=== PATIENT | female | born 2005 | race African-American/Black ===

== ENCOUNTER 2025-03-12 22:47 | Inpatient (IN) ==
--- NOTE | 2025-03-12 22:54 | Emergency Department Note ---
Impression & Plan Right lower lobe pneumonia, Pulmonary embolism and infarction, COVID-19, Hyponatremia ED Provider Note CHIEF COMPLAINT: Flank pain HISTORY OF PRESENTING ILLNESS: The patient is a 19-year-old female with no significant past medical history that reports to the emergency department via EMS due to right sided rib pain that began yesterday which has now progressed into right lower chest pain and right upper quadrant abdominal pain. She reports associated shortness of breath and pain that is worse with a deep breath. She denies fevers, URI symptoms, nausea, vomiting, constipation, diarrhea, urinary symptoms, recent travel, history of blood clots, calf or leg pain. She does report taking an estrogen containing control. REVIEW OF SYSTEMS: See HPI for pertinent positives and pertinent negatives. ALLERGIES: NKDA MEDICATIONS: control PAST MEDICAL HISTORY: Denies past medical history. PHYSICAL EXAM: VITALS: Vitals are noted on the nurses note and reviewed by myself. Vital signs stable. GENERAL: 19-year-old female, tearful on exam, in no acute distress, nondiaphoretic, well-developed well-nourished. SKIN: Capillary refill less than 2 seconds. No rash. HEENT: Normocephalic. PERRLA. EOMI. Nares patent. Mucous membranes moist. Neck is supple without nuchal rigidity. HEART: Regular rate and rhythm without murmurs gallops or rubs. LUNGS: Diminished breath sounds over right lower lung christiansen, CTA BL without wheezes, rales or rhonchi. No retractions or accessory muscle use. ABDOMEN: Positive BS x 4. Soft, tenderness upon palpation to the RUQ, all other quadrants are nontender, without masses or organomegaly. Hancock sign negative. No guarding or rebound tenderness. MUSCULOSKELETAL: No gross musculoskeletal defects. No pedal edema. No calf tenderness. NEURO: Patient was alert and oriented to person place and time. No focal neurological deficits. DIFFERENTIAL DIAGNOSIS: Differential diagnosis includes acute coronary syndrome, pulmonary embolism, pneumothorax, pericarditis, myocarditis, endocarditis, anxiety, musculoskeletal pain, GERD, costochondritis, pneumonia, among others. ED COURSE AND MEDICAL DECISION MAKING: HISTORY FROM INDEPENDENT HISTORIAN: The patient herself. MEDICATIONS GIVEN: Toradol 10 mg IV, 1 L normal saline, Unasyn 3 g, 1 L normal saline, MONITOR: Continuous cardiac cath technician: Order was placed for continuous cardiac cath technician. Patient was placed on the cardiac cath technician and continuous pulse ox. Patient was noted to be in normal sinus rhythm at an initial rate of 101 bpm per my interpretation. EKG: EKG was interpreted by myself as sinus tachycardia. No obvious arrhythmia. TN interval 146 ms. QT interval 435 ms. No previous EKG for comparison. INTERPRETATION OF LABS: I interpreted the labs with full lab results as below in the lab section of this note. Pertinent lab results discussed in the MDM section below. INTERPRETATION OF IMAGING: Imaging studies were interpreted by myself and read by radiology as per the imaging section of this note. Chest x-ray - Poor inspiratory effort. Infiltrate versus atelectasis right lung base. Recommend standard PA/lateral view of chest. CT abdomen pelvis - Large airspace consolidation in the right lower lobe. No acute intra-abdominal abnormality. CTA chest - Evidence of intraluminal hypodense filling defect is noted involving the right lower lobar artery and segmental branches, suggestive of pulmonary embolism. Large airspace consolidation with adjacent ground-glass opacities is noted in the right lower lobe. Possibility of lung infarct is likely. Minimal right-sided pleural effusion. CONSULTATIONS: On-call [facility] hospitalist - Presented the patient to the provider who agrees to admission to medicine. I have personally spent greater than 30 minutes of critical care time in the direct management of this patient. This includes bedside care, interpretation of diagnostic studies, and testing, discussion with consultants, patient, and family members, and other required patient management activities. This 30 minutes is in excess of all separately billable procedures. [facility] SUMMARY: I evaluated the 19-year-old female who presents to the emergency department due to 2 days of right sided rib pain, chest pain, and associated shortness of breath. See HPI and PE above. Patient mildly tachycardic with a rate of [id number]. All other vital stable. Toradol and 1 L normal saline given for symptom management. Labs obtained showing mild leukocytosis WBC 11.09. Hemodynamically stable. Hyponatremia sodium 131. No VALERIANO. Lipase 12. negative. D-dimer elevated 3920. CT abdomen and pelvis shows no acute abnormality. CTA chest shows pulmonary embolism with possibility of long infarction. Minimal right sided pleural effusion. All laboratory and imaging results were thoroughly reviewed with the patient. BioFire ordered which resulted positive for COVID-19. Blood cultures obtained and IV Unasyn given. Patient's vitals remained stable. Consultation with on-call hospitalist can be seen above. Heparin bolus and drip ordered by hospitalist. Patient is agreeable to admission and all questions answered. The patient was admitted to medicine in stable condition. DIAGNOSIS: Right lower lobe pneumonia, pulmonary embolism and infarction, COVID- 19, hyponatremia The chart was completed utilizing [employer] Speech voice recognition software. Grammatical errors, random word insertions, pronoun errors, and incomplete sentences are an occasional consequence of this system due to software limitations, ambient noise, and hardware issues. Any formal questions or concerns about the content, text, or information contained within the body of this dictation should be directly addressed to the provider for clarification. Past Med/Surg History Problem List (Updated 03/14/25 @ 11:10 by Rosa Jara PA-C) Hyponatremia (Acute) COVID-19 (Acute) Pulmonary embolism and infarction (Acute) Right lower lobe pneumonia (Acute) Medical History Uses oral contraceptives Social History Smoking Status: Never smoker Tobacco Type: Cigarettes Second Hand Exposure: No; Do You Dip or Chew Tobacco: No; Tobacco Cessation Education Requested by Patient: No Hx Alcohol Use: No Hx Substance Use: No Preferred Language: Kyrgyz Current Living Situation: Alone Current Living Situation Comment: student lives with roommate Other Information That Helps Us Care for You: No Feels Safe at Home: Yes Safety Concerns: Feels Safe At This Time Allergies Allergies Allergy/AdvReac Type Severity Reaction Status Date / Time No Known Allergies Allergy Unverified 03/12/25 23:24 Home Meds Previous Rx's Medication Instructions Recorded amoxicillin 875 mg-potassium 1 tab PO BID #10 tabs 03/14/25 clavulanate 125 mg tablet apixaban 5 mg (74 tabs) tablets in 5 mg PO BID #74 ea 03/14/25 a dose pack (Eliquis) tramadol 50 mg tablet 50 mg PO Q4H PRN pain #30 tabs 03/14/25 Results & Data (ED) Vital Signs Vital Signs - 24 hr 03/12/25 22:54 03/12/25 23:00 03/12/25 23:30 Pulse Rate 100 H 99 H Pulse Rate [Apical] 104 H Respiratory Rate 18 28 H Blood Pressure 110/82 Blood Pressure [Right Arm] 126/75 Blood Pressure Mean 91 Blood Pressure Mean [Right Arm] 92 Pulse Oximetry 100 100 Oxygen Delivery Method Room Air Room Air Sepsis Recent Fever Within 48 Hours No Sepsis New/Unexplained Change in Mental Status No Sepsis Action Taken by Nursing No Action Required 03/12/25 23:32 03/13/25 00:52 03/13/25 02:14 Pulse Rate Pulse Rate [Apical] 102 H 89 Respiratory Rate 30 H 24 Blood Pressure Blood Pressure [Right Arm] 125/72 108/67 Blood Pressure Mean Blood Pressure Mean [Right Arm] 89 80 Pulse Oximetry 99 95 100 Oxygen Delivery Method Room Air Room Air Room Air Sepsis Recent Fever Within 48 Hours Sepsis New/Unexplained Change in Mental Status Sepsis Action Taken by Nursing Laboratory Data 03/14/25 05:45 03/14/25 05:45 Lab Results 03/12/25 03/12/25 03/12/25 Range/Units 23:25 23:26 23:27 WBC 11.09 H (4.8-10.8) K/ul RBC 4.39 (4.20-5.40) M/uL Hgb 11.4 L (12.0-16.0) g/dl POC Hgb (12.0-16.0) g/dl Hct 36.3 L (37.0-47.0) % POC Hct (37-47) % MCV 82.7 (80.0-100.0) fL MCH 26.0 (25.0-34.0) pg MCHC 31.4 L (32.0-36.0) g/dL RDW Std Deviation 39.2 (36.4-46.3) fL RDW Coeff of Martir 13.0 (11.5-14.5) % Plt Count 245 (130-400) K/uL MPV 10.8 (9.4-12.4) fL Immature Gran % (Auto) 0.3 % Neut % (Auto) 79.3 % Lymph % (Auto) 11.3 % [place]oux % (Auto) 8.5 % Eos % (Auto) 0.3 % Baso % (Auto) 0.3 % Neut # (Auto) 8.81 H (1.40-6.50) K/uL Lymph # (Auto) 1.25 (1.20-3.40) K/uL [place] # (Auto) 0.94 H (0.11-0.59) K/uL Eos # (Auto) 0.03 (0.00-0.50) K/uL Baso # (Auto) 0.03 (0.00-0.20) K/uL Immature Gran # (Auto) 0.03 (0.01-0.20) K/uL D-Dimer 3920 H* (0-500) ug/L FEU POC Sodium (135-144) mmol/L Sodium 131 L (136-145) mmol/L POC Potassium (3.3-5.0) mmol/L Potassium 3.8 (3.5-5.1) mmol/L POC Chloride (101-112) mmol/L Chloride 99 (98-107) mmol/L Carbon Dioxide 24 (21-32) mmol/L POC Total CO2 (24-31) mmol/L Anion Gap 8 (3-11) POC Anion Gap (16-25) mmol/L POC BUN (7-18) mg/dl BUN 11 (6-23) mg/dl Creatinine 0.64 (0.6-1.2) mg/dl POC Creatinine (0.6-1.3) mg/dl Est Cr Clr Drug Dosing 125.6 ml/min eGFR 128.86 BUN/Creatinine Ratio 17.2 (10-20) Glucose 99 (70-99(Fasting)) mg/dl POC Glucose (other) (70-99) mg/dl Calcium 9.1 (8.6-10.3) mg/dl POC Ioniz Calcium Anderson (1.12-1.32) mmol/l Total Bilirubin 0.3 (0.2-1.0) mg/dl AST 15 (13-39) U/L ALT 9 (7-52) U/L Alkaline Phosphatase 58 (34-104) U/L Troponin I High Sens 4.0 (0-14) pg/ml Total Protein 7.8 (6.0-8.3) gm/dl Albumin 4.0 (3.4-5.0) gm/dl Globulin 3.8 (2.5-4.0) gm/dl Albumin/Globulin Ratio 1.1 (0.9-2) Lipase 12 (11-82) U/L HCG, Qual Negative (Negative) Urine Color Urine Appearance (Clear) Urine pH (4.5-7.5) Ur Specific [place] (1.000-1.030) Urine Protein (Negative) Urine Glucose (UA) (Negative) Urine Ketones (Negative) Urine Blood (Negative) Urine Nitrite (Negative) Urine Bilirubin (Negative) Urine Urobilinogen (Negative) Ur Leukocyte Esterase (Negative) Urine Comment Nasal Screen MRSA (PCR) (Negative) Adenovirus (PCR) (NotDetected) B. pertussis DNA (PCR) (NotDetected) B.parapertussis DNA PCR (NotDetected) C. pneumoniae DNA (PCR) (NotDetected) Coronavirus OC43 (PCR) (NotDetected) Coronavirus HKU1 (PCR) (NotDetected) Coronavirus 229E (PCR) (NotDetected) SARS-CoV-2 (PCR) (NotDetected) Coronavirus NL63 (PCR) (NotDetected) Human Metapneumovir PCR (NotDetected) Influenza Type A (PCR) (NotDetected) Influenza Type B (PCR) (NotDetected) M. pneumoniae (PCR) (NotDetected) Parainfluenza 1 (PCR) (NotDetected) Parainfluenza 2 (PCR) (NotDetected) Parainfluenza 3 (PCR) (NotDetected) Parainfluenza 4 (PCR) (NotDetected) RSV (PCR) (NotDetected) Entero/Rhino (PCR) (NotDetected) 03/12/25 03/13/25 03/13/25 Range/Units 23:41 00:13 01:13 WBC (4.8-10.8) K/ul RBC (4.20-5.40) M/uL Hgb (12.0-16.0) g/dl POC Hgb 12.9 (12.0-16.0) g/dl Hct (37.0-47.0) % POC Hct 38 (37-47) % MCV (80.0-100.0) fL MCH (25.0-34.0) pg MCHC (32.0-36.0) g/dL RDW Std Deviation (36.4-46.3) fL RDW Coeff of Martir (11.5-14.5) % Plt Count (130-400) K/uL MPV (9.4-12.4) fL Immature Gran % (Auto) % Neut % (Auto) % Lymph % (Auto) % [place] % (Auto) % Eos % (Auto) % Baso % (Auto) % Neut # (Auto) (1.40-6.50) K/uL Lymph # (Auto) (1.20-3.40) K/uL [place] # (Auto) (0.11-0.59) K/uL Eos # (Auto) (0.00-0.50) K/uL Baso # (Auto) (0.00-0.20) K/uL Immature Gran # (Auto) (0.01-0.20) K/uL D-Dimer (0-500) ug/L FEU POC Sodium 131 L (135-144) mmol/L Sodium (136-145) mmol/L POC Potassium 4.3 (3.3-5.0) mmol/L Potassium (3.5-5.1) mmol/L POC Chloride 99 L (101-112) mmol/L Chloride (98-107) mmol/L Carbon Dioxide (21-32) mmol/L POC Total CO2 21 L (24-31) mmol/L Anion Gap (3-11) POC Anion Gap 16.0 (16-25) mmol/L POC BUN 9 (7-18) mg/dl BUN (6-23) mg/dl Creatinine (0.6-1.2) mg/dl POC Creatinine 0.6 (0.6-1.3) mg/dl Est Cr Clr Drug Dosing ml/min eGFR BUN/Creatinine Ratio (10-20) Glucose (70-99(Fasting)) mg/dl POC Glucose (other) 98 (70-99) mg/dl Calcium (8.6-10.3) mg/dl POC Ioniz Calcium Anderson 1.12 (1.12-1.32) mmol/l Total Bilirubin (0.2-1.0) mg/dl AST (13-39) U/L ALT (7-52) U/L Alkaline Phosphatase (34-104) U/L Troponin I High Sens (0-14) pg/ml Total Protein (6.0-8.3) gm/dl Albumin (3.4-5.0) gm/dl Globulin (2.5-4.0) gm/dl Albumin/Globulin Ratio (0.9-2) Lipase (11-82) U/L HCG, Qual (Negative) Urine Color Yellow Urine Appearance Clear (Clear) Urine pH 5.5 (4.5-7.5) Ur Specific [place] 1.036 H (1.000-1.030) Urine Protein Negative (Negative) Urine Glucose (UA) Negative (Negative) Urine Ketones 2+ H (Negative) Urine Blood Negative (Negative) Urine Nitrite Negative (Negative) Urine Bilirubin Negative (Negative) Urine Urobilinogen Negative (Negative) Ur Leukocyte Esterase Negative (Negative) Urine Comment Nasal Screen MRSA (PCR) (Negative) Adenovirus (PCR) Not Detected (NotDetected) B. pertussis DNA (PCR) Not Detected (NotDetected) B.parapertussis DNA PCR Not Detected (NotDetected) C. pneumoniae DNA (PCR) Not Detected (NotDetected) Coronavirus OC43 (PCR) Not Detected (NotDetected) Coronavirus HKU1 (PCR) Not Detected (NotDetected) Coronavirus 229E (PCR) Not Detected (NotDetected) SARS-CoV-2 (PCR) DETECTED A (NotDetected) Coronavirus NL63 (PCR) Not Detected (NotDetected) Human Metapneumovir PCR Not Detected (NotDetected) Influenza Type A (PCR) Not Detected (NotDetected) Influenza Type B (PCR) Not Detected (NotDetected) M. pneumoniae (PCR) Not Detected (NotDetected) Parainfluenza 1 (PCR) Not Detected (NotDetected) Parainfluenza 2 (PCR) Not Detected (NotDetected) Parainfluenza 3 (PCR) Not Detected (NotDetected) Parainfluenza 4 (PCR) Not Detected (NotDetected) RSV (PCR) Not Detected (NotDetected) Entero/Rhino (PCR) Not Detected (NotDetected) 03/13/25 Range/Units 02:44 WBC (4.8-10.8) K/ul RBC (4.20-5.40) M/uL Hgb (12.0-16.0) g/dl POC Hgb (12.0-16.0) g/dl Hct (37.0-47.0) % POC Hct (37-47) % MCV (80.0-100.0) fL MCH (25.0-34.0) pg MCHC (32.0-36.0) g/dL RDW Std Deviation (36.4-46.3) fL RDW Coeff of Martir (11.5-14.5) % Plt Count (130-400) K/uL MPV (9.4-12.4) fL Immature Gran % (Auto) % Neut % (Auto) % Lymph % (Auto) % [place] % (Auto) % Eos % (Auto) % Baso % (Auto) % Neut # (Auto) (1.40-6.50) K/uL Lymph # (Auto) (1.20-3.40) K/uL [place] # (Auto) (0.11-0.59) K/uL Eos # (Auto) (0.00-0.50) K/uL Baso # (Auto) (0.00-0.20) K/uL Immature Gran # (Auto) (0.01-0.20) K/uL D-Dimer (0-500) ug/L FEU POC Sodium (135-144) mmol/L Sodium (136-145) mmol/L POC Potassium (3.3-5.0) mmol/L Potassium (3.5-5.1) mmol/L POC Chloride (101-112) mmol/L Chloride (98-107) mmol/L Carbon Dioxide (21-32) mmol/L POC Total CO2 (24-31) mmol/L Anion Gap (3-11) POC Anion Gap (16-25) mmol/L POC BUN (7-18) mg/dl BUN (6-23) mg/dl Creatinine (0.6-1.2) mg/dl POC Creatinine (0.6-1.3) mg/dl Est Cr Clr Drug Dosing ml/min eGFR BUN/Creatinine Ratio (10-20) Glucose (70-99(Fasting)) mg/dl POC Glucose (other) (70-99) mg/dl Calcium (8.6-10.3) mg/dl POC Ioniz Calcium Anderson (1.12-1.32) mmol/l Total Bilirubin (0.2-1.0) mg/dl AST (13-39) U/L ALT (7-52) U/L Alkaline Phosphatase (34-104) U/L Troponin I High Sens (0-14) pg/ml Total Protein (6.0-8.3) gm/dl Albumin (3.4-5.0) gm/dl Globulin (2.5-4.0) gm/dl Albumin/Globulin Ratio (0.9-2) Lipase (11-82) U/L HCG, Qual (Negative) Urine Color Urine Appearance (Clear) Urine pH (4.5-7.5) Ur Specific [place] (1.000-1.030) Urine Protein (Negative) Urine Glucose (UA) (Negative) Urine Ketones (Negative) Urine Blood (Negative) Urine Nitrite (Negative) Urine Bilirubin (Negative) Urine Urobilinogen (Negative) Ur Leukocyte Esterase (Negative) Urine Comment Nasal Screen MRSA (PCR) Negative (Negative) Adenovirus (PCR) (NotDetected) B. pertussis DNA (PCR) (NotDetected) B.parapertussis DNA PCR (NotDetected) C. pneumoniae DNA (PCR) (NotDetected) Coronavirus OC43 (PCR) (NotDetected) Coronavirus HKU1 (PCR) (NotDetected) Coronavirus 229E (PCR) (NotDetected) SARS-CoV-2 (PCR) (NotDetected) Coronavirus NL63 (PCR) (NotDetected) Human Metapneumovir PCR (NotDetected) Influenza Type A (PCR) (NotDetected) Influenza Type B (PCR) (NotDetected) M. pneumoniae (PCR) (NotDetected) Parainfluenza 1 (PCR) (NotDetected) Parainfluenza 2 (PCR) (NotDetected) Parainfluenza 3 (PCR) (NotDetected) Parainfluenza 4 (PCR) (NotDetected) RSV (PCR) (NotDetected) Entero/Rhino (PCR) (NotDetected) Administered Medications Acetaminophen (Acetaminophen 500 Mg Tab) 1,000 mg PO Q8H PRN PRN Reason: Pain or Fever Stop: 04/12/25 03:04 Last Admin: 03/13/25 10:58 Dose: 1,000 mg Documented By: OO Apixaban (Apixaban 5 Mg Tablet) 10 mg PO BID [facility] Stop: 03/19/25 21:01 Last Admin: 03/14/25 08:54 Dose: 10 mg Documented By: Admin: 03/13/25 20:39 Dose: 10 mg Documented By: Admin: 03/13/25 11:40 Dose: 10 mg Documented By: PRIMO Azithromycin (Zithromax) 500 mg in 255 mls @ 127.5 mls/hr IV Q24H ROSARIO Stop: 03/18/25 02:44 Last Infusion: 03/14/25 06:10 Dose: Infused Documented By: Admin: 03/14/25 03:53 Dose: 127.5 mls/hr Documented By: SALVADOR Piperacillin Sod/Tazobactam Sod (Zosyn) 4.5 gm in 100 mls @ 25 mls/hr IV Q8H ROSARIO; Protocol Stop: 03/18/25 07:59 Last Admin: 03/14/25 08:55 Dose: 25 mls/hr Documented By: Infusion: 03/14/25 03:53 Dose: Infused Documented By: Admin: 03/13/25 23:47 Dose: 25 mls/hr Documented By: Infusion: 03/13/25 21:31 Dose: Infused Documented By: Admin: 03/13/25 17:08 Dose: 25 mls/hr Documented By: Infusion: 03/13/25 11:37 Dose: Infused Documented By: Admin: 03/13/25 07:26 Dose: 25 mls/hr Documented By: PRIMO Tramadol HCl (Tramadol Hcl 50 Mg Tablet) 50 mg PO Q4H PRN PRN Reason: Mod-Sev Pain (Scale 4-10) Stop: 04/12/25 02:44 Last Admin: 03/14/25 08:54 Dose: 50 mg Documented By: Admin: 03/14/25 03:58 Dose: 50 mg Documented By: Admin: 03/13/25 20:38 Dose: 50 mg Documented By: Admin: 03/13/25 14:06 Dose: 50 mg Documented By: Admin: 03/13/25 08:39 Dose: 50 mg Documented By: OAdrienne Discontinued Medications Heparin Sodium (Porcine) (Heparin Sod (Porcine) 1000 Unit/Ml) 5,000 units IV NOW ONE Stop: 03/13/25 03:07 Last Admin: 03/13/25 03:19 Dose: 5,000 units Documented By: ISHA Co-signed By: sean Heparin Sodium/Dextrose (Heparin Iv Adult Wt-Based Standard W/ Initial Bolus Protocol) 1 each IV NOW STA; Protocol Stop: 03/13/25 02:51 Last Admin: 03/13/25 03:28 Dose: Not Given Documented By: ISHA Sodium Chloride (Nss) 1,000 mls @ 999 mls/hr IV .Q1H1M ONE Stop: 03/13/25 00:25 Last Infusion: 03/13/25 01:17 Dose: Infused Documented By: abl Admin: 03/12/25 23:41 Dose: 999 mls/hr Documented By: sean Sodium Chloride (Nss) 1,000 mls @ 999 mls/hr IV .Q1H1M ONE Stop: 03/13/25 02:20 Last Infusion: 03/13/25 03:27 Dose: Infused Documented By: abl Admin: 03/13/25 02:08 Dose: 999 mls/hr Documented By: sean Ampicillin Sodium/Sulbactam Sodium (Unasyn) 3,000 mg in 100 mls @ 200 mls/hr IV NOW STA Stop: 03/13/25 01:51 Last Infusion: 03/13/25 02:40 Dose: Infused Documented By: abl Admin: 03/13/25 02:07 Dose: 200 mls/hr Documented By: sean Heparin Sodium/Dextrose (Heparin 11986 Unit/500 Ml D5w) 25,000 units in 500 mls @ 20 mls/hr IV .Q24H [facility]; Protocol Stop: 04/12/25 03:14 Last Titration: 03/13/25 11:47 Dose: Infused Documented By: PRIMO Co-signed By: SHUKRI Admin: 03/13/25 03:20 Dose: 1,000 units/hr, 20 mls/hr Documented By: ISHA Co-signed By: sean Azithromycin (Zithromax) 500 mg in 255 mls @ 127.5 mls/hr IV NOW STA Stop: 03/13/25 05:06 Last Infusion: 03/13/25 05:21 Dose: Infused Documented By: B Admin: 03/13/25 03:20 Dose: 127.5 mls/hr Documented By: ISHA Magnesium Sulfate/Dextrose (Magnesium Sulfate / D5w) 1 gm in 100 mls @ 50 mls/hr IV ONE ONE Stop: 03/14/25 09:34 Last Infusion: 03/14/25 10:51 Dose: Infused Documented By: Admin: 03/14/25 08:55 Dose: 50 mls/hr Documented By: TORY Ioversol (Optiray 320 100ml) 93 ml IV ONCE ONE Stop: 03/13/25 00:03 Last Admin: 03/13/25 00:03 Dose: 93 ml Documented By: BOB Ioversol (Optiray 320 125ml) 118 ml IV ONCE ONE Stop: 03/13/25 00:52 Last Admin: 03/13/25 00:51 Dose: 118 ml Documented By: BOB Ketorolac Tromethamine (Ketorolac Tromethamine 15 Mg/Ml Vial) 10 mg IV NOW STA Stop: 03/12/25 23:26 Last Admin: 03/12/25 23:40 Dose: 10 mg Documented By: abl Imaging Data Radiologist's Impression: Venous Doppler Study 03/13/25 02:38 EXAM: US venous doppler LE BI CLINICAL HISTORY: PE. TECHNIQUE: Ultrasound examination of the bilateral lower extremity veins was performed in real time and with duplex. One or more of the following were performed: spectral analysis, resistive index, waveform analysis, and pulsed Doppler. COMPARISON: None. FINDINGS: Normal flow is noted in the visualized bilateral greater saphenous, common femoral, superficial femoral, popliteal, anterior tibial, posterior tibial, and peroneal veins. The visualized veins of both lower extremities demonstrate normal compressibility. No sonographic evidence of acute deep vein thrombosis (DVT) is detected in the visualized veins of both lower extremities. Spectral Doppler images of the bilateral common femoral vein, superficial femoral vein, and popliteal veins are available. Non-pulsatile and spontaneous flow is seen. Compression: All evaluated veins compress fully with the applied transducer pressure. Additional Findings: No evidence of intraluminal thrombus. IMPRESSION: No sonographic evidence of acute DVT was detected at the time of examination. Disclaimer: DVT could be missed early in the disease when clot burden is minimal. For patients with moderate and high pretest probability of DVT and negative ultrasound, the [employer] clinical guidelines recommend testing with a D-dimer assay or repeat ultrasound in 5-7 days. If symptoms worsen, the Society of radiologists in ultrasound recommends repeating ultrasound even earlier. Electronically signed by Naresh Vo 03-13-2025 06:03 AM Discharge Plan Visit Data Chief Complaint: Flank Pain Stated Complaint: flank pain ED Provider: Jaqui Gonzalez ED Midlevel Provider: Rosa Jara Discharge Problem: Right lower lobe pneumonia, Pulmonary embolism and infarction, COVID-19, Hyponatremia Patient Disposition: Admitted As Inpatient Condition: Good Discharge Instructions Interventions: ED Discharge Assessment Last Done: 03/13/25 03:57 Discharge Problem: Right lower lobe pneumonia Qualifiers: Pneumonia type: due to unspecified organism Qualified Code(s): J18.9 - Pneumonia, unspecified organism
[2025-03-12 23:38] LABS: Hematocrit (blood only) 36.3 % (37.0-47.0); Hemoglobin 11.4 g/dl (12.0-16.0); Immature Granulocytes # (auto) 0.03 K/uL (0.01-0.20); Immature Granulocytes % (auto) 0.3 %; Mean Corpuscular Hemoglobin 26.0 pg (25.0-34.0); Mean Corpuscular Volume 82.7 fL (80.0-100.0); Platelet Count 245 K/uL (130-400); RDW Standard Deviation 39.2 fL (36.4-46.3); Red Blood Count 4.39 M/uL (4.20-5.40); White Blood Count 11.09 K/ul (4.8-10.8)
[2025-03-12] MEDS: KETOROLAC TROMETHAMINE 15 MG/ML VIAL IV STA (23:40)
[2025-03-12] MEDS: SODIUM CHLORIDE 0.9% 1,000 ML IV ONE (23:41)
--- NOTE | 2025-03-12 23:50 | XRay Report ---
Exam(s): XR CXR 1 VIEW EXAM: XR Chest, 1 View CLINICAL HISTORY: Reason for exam: CP radiating into right arm. TECHNIQUE: Frontal view of the chest. COMPARISON: No relevant prior studies available. FINDINGS: There is a poor inspiratory effort. Lungs: There is increased opacity at the right lung base.. Pleural space: No pleural effusion is seen. No pneumothorax. Heart: The heart is top normal in size.. Mediastinum: Unremarkable.. Bones/joints: Unremarkable. IMPRESSION: Poor inspiratory effort. There is infiltrate and/or atelectasis at the right lung base. Recommend standard PA and lateral views of the chest, when the patient's condition allows, for complete evaluation Electronically signed by: Ramos Denney MD 03/12/25 23:49 PM
[2025-03-12 23:55] LABS: Alanine Aminotransferase 9.0 U/L (7-52); Albumin Globulin Ratio 1.1 (0.9-2); Albumin Level 4.0 gm/dl (3.4-5.0); Alkaline Phosphatase 58.0 U/L (34-104); Anion Gap 8.0 (3-11); Bilirubin,Total 0.3 mg/dl (0.2-1.0); Blood Urea Nitrogen 11.0 mg/dl (6-23); Calcium 9.1 mg/dl (8.6-10.3); Carbon Dioxide 24.0 mmol/L (21-32); Chloride 99.0 mmol/L (98-107); Creatinine Clr Calc Pharmacy 125.6 ml/min; Globulin 3.8 gm/dl (2.5-4.0); Glucose 99.0 mg/dl (70-99(Fasting)); Lipase 12.0 U/L (11-82); Potassium 3.8 mmol/L (3.5-5.1); Sodium 131.0 mmol/L (136-145); Total Protein 7.8 gm/dl (6.0-8.3)
[2025-03-12 23:57] LABS: Pregnancy Test, Serum Negative (Negative)
[2025-03-13] MEDS: OPTIRAY 320 100ml IV ONE (00:03)
[2025-03-13 00:20] LABS: Appearance Urine Clear (Clear); Glucose Urine UA Negative (Negative)
[2025-03-13] MEDS: OPTIRAY 320 125ml IV ONE (00:51)
--- NOTE | 2025-03-13 01:11 | CT Scan Report ---
EXAM: CT abd pelvis IV con only CLINICAL HISTORY: RUQ ab pain, epigastric pain TECHNIQUE: Contiguous axial images were obtained from the level of the diaphragm to the pubic symphysis with intravenous contrast. Coronal and sagittal reconstructions were likewise performed and are indicated to increase the sensitivity for detecting clinically relevant pathology. If IV contrast material had not been administered, the likelihood of detecting abnormalities relevant to the patient's condition would have been substantially decreased. The CT scan was performed according to ALARA (as low as reasonably achievable). COMPARISON: None. FINDINGS: A large airspace consolidation is noted in the right lower lobe. The liver is normal in size and attenuation. No focal liver lesions are seen. There is no intrahepatic or extrahepatic biliary ductal dilatation. The hepatic vasculature is patent. The gallbladder is present. The spleen, pancreas, and adrenal glands are unremarkable. The kidneys are normal in size and attenuation. There is no hydronephrosis or perinephric fat stranding. No renal calculi or renal masses are identified. The ureters are normal in caliber, and no ureteral calculi are seen. The bladder is normal in contour. Pelvic viscera are unremarkable. No focal or diffuse bowel wall thickening or evidence of bowel obstruction is identified. No imaging evidence of appendicitis is seen. Abdominal and pelvic vasculature is patent. No adenopathy or fluid collections are seen. No aggressive-appearing osseous lesions are identified. Colonic fecal and gaseous distension is noted. The stomach shows gaseous distension. IMPRESSION: A large airspace consolidation is noted in the right lower lobe. Colonic fecal and gaseous distension is noted. The stomach shows gaseous distension. No acute intra-abdominal abnormality is seen. Electronically signed by Chris Caballero 03-13-2025 01:11 AM
--- NOTE | 2025-03-13 01:33 | CT Scan Report ---
EXAM: CT angio chest PE protocol CLINICAL HISTORY: PE. TECHNIQUE: Contiguous axial images were obtained from the neck base through the upper abdomen following intravenous administration of iodinated contrast material. Angiographic images were processed, and 3D MIP images were acquired for interpretation. If IV contrast material had not been administered, the likelihood of detecting abnormalities relevant to the patient's condition would have been substantially decreased. Coronal and sagittal 3D MIPs were likewise performed and indicated to increase the sensitivity of detecting diffuse clinically relevant pathology. CT scan was performed according to ALARA (as low as reasonably achievable). COMPARISON: None. FINDINGS: Evidence of intraluminal hypodense filling defects is noted involving the right lower lobar artery and segmental branches, suggestive of pulmonary embolism. Large airspace consolidation with adjacent ground-glass opacities is noted in the right lower lobe. Minimal right-sided pleural effusion is seen. The central airways are patent. The heart, aorta, and pulmonary arteries are of normal size and configuration. There are no appreciable coronary artery or aortic atherosclerotic calcifications. No pericardial effusion is identified. The thyroid is unremarkable. No mediastinal, hilar, or axillary lymphadenopathy is noted. No suspicious lytic or sclerotic osseous lesions are identified. IMPRESSION: Evidence of intraluminal hypodense filling defect is noted involving the right lower lobar artery and segmental branches, suggestive of pulmonary embolism. Large airspace consolidation with adjacent ground-glass opacities is noted in the right lower lobe. Possibility of lung infarct is likely. Minimal right-sided pleural effusion. Electronically signed by Chris Caballero 03-13-2025 01:32 AM
[2025-03-13] MEDS: AMPICILLIN/SULBACTAM SOD 3,000 MG/100 ML BAG IV STA (02:07)
[2025-03-13] MEDS: SODIUM CHLORIDE 0.9% 1,000 ML IV ONE (02:08)
[2025-03-13 02:23] LABS: Chlamydia pneumoniae PCR Not Detected (NotDetected); Coronavirus 229E PCR Not Detected (NotDetected); Coronavirus CoV-2 (COVID19)PCR DETECTED (NotDetected); Coronavirus HKU1 PCR Not Detected (NotDetected); Coronavirus NL63 PCR Not Detected (NotDetected); Coronavirus OC43PCR Not Detected (NotDetected); Human Metapneumovirus PCR Not Detected (NotDetected); Parainfluenza Virus 1 PCR Not Detected (NotDetected); Parainfluenza Virus 2 PCR Not Detected (NotDetected); Parainfluenza Virus 3 PCR Not Detected (NotDetected); Parainfluenza Virus 4 PCR Not Detected (NotDetected); Respiratory Syncytial VirusPCR Not Detected (NotDetected); Rhinovirus/Enterovirus PCR Not Detected (NotDetected)
--- NOTE | 2025-03-13 02:52 | History & Physical Report ---
Date of Service March 13, 2025 Assessment & Plan (1) Pulmonary embolism and infarction: (2) Right lower lobe pneumonia: (3) COVID-19: (4) Uses oral contraceptives: Plan The patient is a 19-year-old female with past medical history significant for OCP use for hormonal treatment. She presents to the emergency department with complaint of 24 hours of persistent right lower chest pain, and right upper quadrant pain, that are worse with deep inspiration and activity. She denies any recent travel or sick exposures, she denies any trauma. She denies any fevers or chills, myalgias or arthralgias. Workup in the emergency department included a normal set of laboratories except for a mildly elevated WBC 11.09 and a D-dimer of 3920. CT scan of abdomen pelvis showed a right lower lobe pocket and gaseous distention. Chest x-ray suggested right lower lobe infiltrate. CT angiography chest PE protocol showed a right lower lobe pulmonary artery and segmental PE. There was also suggestion of right lower lobe pulmonary infarct. Also noted is a right lower lobe pneumonia. Later on in the admission, [employer] testing returned positive for COVID. Patient denied any symptoms referable to COVID infection. Right lower lobe pulmonary embolism and infarct- As noted on CT angiography Patient acute onset of chest pain about 24 hours prior to admission Advised to stop oral contraceptive use for now. Hypercoagulable panel ordered and pending COVID infection may be contributable as well Continue heparin bolus/drip per protocol begun in the ED Bilateral venous Dopplers ordered and pending Acetaminophen 1000 mg by mouth every 8 hours as needed for mild pain or fever Tramadol 50 mg by mouth every 4 hours as needed for moderate to severe pain Right lower lobe pneumonia- Likely secondary to painful inspirations Zosyn 4.5 g IV every 8 hours Azithromycin 500 mg IV every 24 hours MRSA swab DuoNebs every 2 hours as needed Patient did receive normal saline 1 L boluses IV x 2, Toradol 10 mg IV, and Unasyn 3 g IV from the ED COVID infection- Bio fire test was ordered by the ED. Patient has no observable symptoms related to COVID infection and therefore will not be directly treated May have contributed to pulmonary embolism May have contributed to secondary bacterial pneumonia by lowering immune status. COVID precautions will be enabled History of Present Illness Chief Complaint: The patient is a 19-year-old female with only significant medical history is that of OCP use for hormone treatment. She presents to the emergency department with complaint of the acute onset of right lower chest pain and right upper quadrant pain that began about 24 hours previously to arrival. She denies any recent travels or sick exposures. She has not had this type of pain in the past. She denies any productive cough. She denies any fatigue, myalgias, arthralgias. Primary Care Provider: NO PCP The patient is a 19-year-old female with past medical history significant for OCP use for hormonal treatment. She presents to the emergency department with complaint of 24 hours of persistent right lower chest pain, and right upper quadrant pain, that are worse with deep inspiration and activity. She denies any recent travel or sick exposures, she denies any trauma. She denies any fevers or chills, myalgias or arthralgias. Workup in the emergency department included a normal set of laboratories except for a mildly elevated WBC 11.09 and a D-dimer of 3920. CT scan of abdomen pelvis showed a right lower lobe pocket and gaseous distention. Chest x-ray suggested right lower lobe infiltrate. CT angiography chest PE protocol showed a right lower lobe pulmonary artery and segmental PE. There was also suggestion of right lower lobe pulmonary infarct. Also noted is a right lower lobe pneumonia. Later on in the admission, [employer] testing returned positive for COVID. Patient denied any symptoms referable to COVID infection. Allergies Allergy/AdvReac Type Severity Reaction Status Date / Time No Known Allergies Allergy Unverified 03/12/25 23:24 Home Medications Medication Instructions Recorded Confirmed Type drospirenone 3 mg-ethinyl 1 tab PO QPM 03/12/25 03/12/25 History estradiol 0.02 mg tablet (Vestura (28)) Past Med/Surg History Problem List (Updated 03/13/25 @ 04:52 by Medhat Jorge MD) COVID-19 Pulmonary embolism and infarction Right lower lobe pneumonia Medical History Uses oral contraceptives Social History Smoking Status: Never smoker Preferred Language: Belgian Feels Safe at Home: Yes Review of Systems Review of Systems: The patient denies palpitations, cough, lower extremity swelling, sore throat, fevers, chills, sweats, fatigue, nausea, vomiting, diarrhea , constipation, pelvic pain, blood in urine or stool, dysuria, urinary frequency or urgency, lightheadedness, dizziness, headache, memory loss, loss of consciousness, rash, abnormal bruising or bleeding, imbalance, focal or generalized weakness, numbness or tingling in arms or legs, generalized arthralgias or myalgias, back or neck pain, or night sweats. The review of systems is otherwise negative other than for that already noted above, and at least 10 systems have been reviewed. Physical Exam Physical Exam: The patient is awake, alert and oriented 3, well developed and well nourished, normocephalic and atraumatic, lying in bed and in no acute distress. HEENT--PERRL, EOMI, mucous membranes and oropharynx normal Neck--supple. No JVD. No bruits. Thyroid normal, trachea midline, no adenopathy. Heart--normal S1 and S2. No murmurs, rubs or gallops. Lungs--decreased breath sounds right base. No respiratory distress, no accessory muscle use. Abdomen--normal bowel sounds and soft. Nontender. Nondistended, no hernias or masses, no organomegaly. Extremities--no cyanosis or clubbing. No edema. There are good distal pulses b/l. Dermatologic--normal skin turgor, normal color, no abnormal lymph nodes, no rash. Neurologic--cranial nerves II through XII grossly intact. Rheumatologic--normal range of motion. Psychiatric--normal affect. Results & Data Results & Data Vital Signs (Past 12 Hours) Vital Signs Pulse Pulse Resp BP BP Pulse Ox O2 Del Method 03/13/25 02:51 95 H 03/13/25 02:14 89 24 108/67 100 Room Air 03/13/25 00:52 102 H 30 H 125/72 95 Room Air 03/12/25 23:32 99 Room Air 03/12/25 23:30 104 H 28 H 126/75 100 Room Air 03/12/25 23:00 99 H 18 110/82 100 Room Air 03/12/25 22:54 100 H Laboratory Results Laboratory Results WBC 11.09 K/ul (4.8-10.8) H 03/12/25 23:25 RBC 4.39 M/uL (4.20-5.40) 03/12/25 23:25 Hgb 11.4 g/dl (12.0-16.0) L 03/12/25 23:25 POC Hgb 12.9 g/dl (12.0-16.0) 03/12/25 23: Hct 36.3 % (37.0-47.0) L 03/12/25: POC Hct 38 % (37-47) 03/12/25: MCV 82.7 fL (80.0-100.0) 03/12/25: MCH 26.0 pg (25.0-34.0) 03/12/25: MCHC 31.4 g/dL (32.0-36.0) L 03/12/25: RDW Std Deviation 39.2 fL (36.4-46.3) 03/12/25 RDW Coeff of Martir 13.0 % (11.5-14.5) 03/12/25 Plt Count 245 K/uL (130-400) 03/12/25: MPV 10.8 fL (9.4-12.4) 03/12/25: Immature Gran % (Auto) 0.3 % 03/12/25: Neut % (Auto) 79.3 % 03/12/25: Lymph % (Auto) 11.3 % 03/12/25: Barber % (Auto) 8.5 % 03/12/25: Eos % (Auto) 0.3 % 03/12/25: Baso % (Auto) 0.3 % 03/12/25: Neut # (Auto) 8.81 K/uL (1.40-6.50) H 03/12/25: Lymph # (Auto) 1.25 K/uL (1.20-3.40) 03/12/25: Barber # (Auto) 0.94 K/uL (0.11-0.59) H 03/12/25: Eos # (Auto) 0.03 K/uL (0.00-0.50) 03/12/25: Baso # (Auto) 0.03 K/uL (0.00-0.20) 03/12/25: Immature Gran # (Auto) 0.03 K/uL (0.01-0.20) 03/12/25 23:25 PT 11.1 Seconds (9.0-12.0) 03/13/25 02:52 INR 1.1 (0.9-1.1) 03/13/25 02:52 APTT 26 Seconds (21-31) 03/13/25 02:52 PTT Ratio 1.0 03/13/25 02:52 D-Dimer 3920 ug/L FEU (0-500) H* 03/12/25 23:27 POC Sodium 131 mmol/L (135-144) L 03/12/25 23:41 Sodium 131 mmol/L (136-145) L 03/12/25 23:25 POC Potassium 4.3 mmol/L (3.3-5.0) 03/12/25 23:41 Potassium 3.8 mmol/L (3.5-5.1) 03/12/25 23:25 POC Chloride 99 mmol/L (101-112) L 03/12/25 23:41 Chloride 99 mmol/L (98-107) 03/12/25 23:25 Carbon Dioxide 24 mmol/L (21-32) 03/12/25 23:25 POC Total CO2 21 mmol/L (24-31) L 03/12/25 23:41 Anion Gap 8 (3-11) 03/12/25 23:25 POC Anion Gap 16.0 mmol/L (16-25) 03/12/25 23:41 POC BUN 9 mg/dl (7-18) 03/12/25 23:41 BUN 11 mg/dl (6-23) 03/12/25 23:25 Creatinine 0.64 mg/dl (0.6-1.2) 03/12/25 23:25 POC Creatinine 0.6 mg/dl (0.6-1.3) 03/12/25 23:41 Est Cr Clr Drug Dosing 125.6 ml/min 03/12/25 23:25 eGFR 128.86 03/12/25 23:25 BUN/Creatinine Ratio 17.2 (10-20) 03/12/25 23:25 Glucose 99 mg/dl (70-99(Fasting)) 03/12/25 23:25 POC Glucose (other) 98 mg/dl (70-99) 03/12/25 23:41 Calcium 9.1 mg/dl (8.6-10.3) 03/12/25 23:25 POC Ioniz Calcium Anderson 1.12 mmol/l (1.12-1.32) 03/12/25 23:41 Total Bilirubin 0.3 mg/dl (0.2-1.0) 03/12/25 23:25 AST 15 U/L (13-39) 03/12/25 23:25 ALT 9 U/L (7-52) 03/12/25 23:25 Alkaline Phosphatase 58 U/L (34-104) 03/12/25 23:25 Troponin I High Sens 4.0 pg/ml (0-14) 03/12/25 23: Total Protein 7.8 gm/dl (6.0-8.3) 03/12/25 23:25 Albumin 4.0 gm/dl (3.4-5.0) 03/12/25 23:25 Globulin 3.8 gm/dl (2.5-4.0) 03/12/25 23:25 Albumin/Globulin Ratio 1.1 (0.9-2) 03/12/25 23:25 Lipase 12 U/L (11-82) 03/12/25 23:25 HCG, Qual Negative (Negative) 03/12/25 23:26 Urine Color Yellow 03/13/25 00:13 Urine Appearance Clear (Clear) 03/13/25 00:13 Urine pH 5.5 (4.5-7.5) 03/13/25 00:13 Ur Specific Wayne 1.036 (1.000-1.030) H 03/13/25 00:13 Urine Protein Negative (Negative) 03/13/25 00:13 Urine Glucose (UA) Negative (Negative) 03/13/25 00:13 Urine Ketones 2+ (Negative) H 03/13/25 00:13 Urine Blood Negative (Negative) 03/13/25 00:13 Urine Nitrite Negative (Negative) 03/13/25 00:13 Urine Bilirubin Negative (Negative) 03/13/25 00:13 Urine Urobilinogen Negative (Negative) 03/13/25 00:13 Ur Leukocyte Esterase Negative (Negative) 03/13/25 00:13 Urine Comment 03/13/25 00:13 Nasal Screen MRSA (PCR) Negative (Negative) 03/13/25 02:44 Adenovirus (PCR) Not Detected (NotDetected) 03/13/25 01:13 B. pertussis DNA (PCR) Not Detected (NotDetected) 03/13/25 01:13 B.parapertussis DNA PCR Not Detected (NotDetected) 03/13/25 01:13 C. pneumoniae DNA (PCR) Not Detected (NotDetected) 03/13/25 01:13 Coronavirus OC43 (PCR) Not Detected (NotDetected) 03/13/25 01:13 Coronavirus HKU1 (PCR) Not Detected (NotDetected) 03/13/25 01:13 Coronavirus 229E (PCR) Not Detected (NotDetected) 03/13/25 01:13 SARS-CoV-2 (PCR) DETECTED (NotDetected) A 03/13/25 01:13 Coronavirus NL63 (PCR) Not Detected (NotDetected) 03/13/25 01:13 Human Metapneumovir PCR Not Detected (NotDetected) 03/13/25 01:13 Influenza Type A (PCR) Not Detected (NotDetected) 03/13/25 01:13 Influenza Type B (PCR) Not Detected (NotDetected) 03/13/25 01:13 M. pneumoniae (PCR) Not Detected (NotDetected) 03/13/25 01:13 Parainfluenza 1 (PCR) Not Detected (NotDetected) 03/13/25 01:13 Parainfluenza 2 (PCR) Not Detected (NotDetected) 03/13/25 01:13 Parainfluenza 3 (PCR) Not Detected (NotDetected) 03/13/25 01:13 Parainfluenza 4 (PCR) Not Detected (NotDetected) 03/13/25 01:13 RSV (PCR) Not Detected (NotDetected) 03/13/25 01:13 Entero/Rhino (PCR) Not Detected (NotDetected) 03/13/25 01:13 Impressions Abdomen/Pelvis CT 03/12/25 23:26 EXAM: CT abd pelvis IV con only CLINICAL HISTORY: RUQ ab pain, epigastric pain TECHNIQUE: Contiguous axial images were obtained from the level of the diaphragm to the pubic symphysis with intravenous contrast. Coronal and sagittal reconstructions were likewise performed and are indicated to increase the sensitivity for detecting clinically relevant pathology. If IV contrast material had not been administered, the likelihood of detecting abnormalities relevant to the patient's condition would have been substantially decreased. The CT scan was performed according to ALARA (as low as reasonably achievable). COMPARISON: None. FINDINGS: A large airspace consolidation is noted in the right lower lobe. The liver is normal in size and attenuation. No focal liver lesions are seen. There is no intrahepatic or extrahepatic biliary ductal dilatation. The hepatic vasculature is patent. The gallbladder is present. The spleen, pancreas, and adrenal glands are unremarkable. The kidneys are normal in size and attenuation. There is no hydronephrosis or perinephric fat stranding. No renal calculi or renal masses are identified. The ureters are normal in caliber, and no ureteral calculi are seen. The bladder is normal in contour. Pelvic viscera are unremarkable. No focal or diffuse bowel wall thickening or evidence of bowel obstruction is identified. No imaging evidence of appendicitis is seen. Abdominal and pelvic vasculature is patent. No adenopathy or fluid collections are seen. No aggressive-appearing osseous lesions are identified. Colonic fecal and gaseous distension is noted. The stomach shows gaseous distension. IMPRESSION: A large airspace consolidation is noted in the right lower lobe. Colonic fecal and gaseous distension is noted. The stomach shows gaseous distension. No acute intra-abdominal abnormality is seen. Electronically signed by Chris Caballero 03-13-2025 01:11 AM Chest X-Ray 03/12/25 23:26 Exam(s): XR CXR 1 VIEW EXAM: XR Chest, 1 View CLINICAL HISTORY: Reason for exam: CP radiating into right arm. TECHNIQUE: Frontal view of the chest. COMPARISON: No relevant prior studies available. FINDINGS: There is a poor inspiratory effort. Lungs: There is increased opacity at the right lung base.. Pleural space: No pleural effusion is seen. No pneumothorax. Heart: The heart is top normal in size.. Mediastinum: Unremarkable.. Bones/joints: Unremarkable. IMPRESSION: Poor inspiratory effort. There is infiltrate and/or atelectasis at the right lung base. Recommend standard PA and lateral views of the chest, when the patient's condition allows, for complete evaluation Electronically signed by: Ramos Denney MD 03/12/25 23:49 PM Chest CTA 03/13/25 00:36 EXAM: CT angio chest PE protocol CLINICAL HISTORY: PE. TECHNIQUE: Contiguous axial images were obtained from the neck base through the upper abdomen following intravenous administration of iodinated contrast material. Angiographic images were processed, and 3D MIP images were acquired for interpretation. If IV contrast material had not been administered, the likelihood of detecting abnormalities relevant to the patient's condition would have been substantially decreased. Coronal and sagittal 3D MIPs were likewise performed and indicated to increase the sensitivity of detecting diffuse clinically relevant pathology. CT scan was performed according to ALARA (as low as reasonably achievable). COMPARISON: None. FINDINGS: Evidence of intraluminal hypodense filling defects is noted involving the right lower lobar artery and segmental branches, suggestive of pulmonary embolism. Large airspace consolidation with adjacent ground-glass opacities is noted in the right lower lobe. Minimal right-sided pleural effusion is seen. The central airways are patent. The heart, aorta, and pulmonary arteries are of normal size and configuration. There are no appreciable coronary artery or aortic atherosclerotic calcifications. No pericardial effusion is identified. The thyroid is unremarkable. No mediastinal, hilar, or axillary lymphadenopathy is noted. No suspicious lytic or sclerotic osseous lesions are identified. IMPRESSION: Evidence of intraluminal hypodense filling defect is noted involving the right lower lobar artery and segmental branches, suggestive of pulmonary embolism. Large airspace consolidation with adjacent ground-glass opacities is noted in the right lower lobe. Possibility of lung infarct is likely. Minimal right-sided pleural effusion. Electronically signed by Chris Caballero 03-13-2025 01:32 AM Code Status & VTE Plan Code Status Full code VTE Prophylaxis Plan VTE Prophylaxis will be ordered: Yes PG Care Time/CCT Total # of Minutes Spent Total Time Spent with Patient: Total time spent is greater than 50% in coordination of care (as documented) at patient's floor/unit and/or counseling patient: Coding Level of Care Code 56899 INT INP/OBS CARE 3/75MIN Diagnoses Pulmonary embolism and infarction I26.99 Right lower lobe pneumonia J18.9 COVID-19 U07.1 Uses oral contraceptives Z30.41
[2025-03-13] MEDS: HEPARIN SOD (PORCINE) 1000 UNIT/ML IV ONE (03:19)
[2025-03-13] MEDS: HEPARIN 25000 UNIT/500 ML D5W 25,000 UNITS/500 ML BAG IV SCH (03:20)
[2025-03-13] MEDS: AZITHROMYCIN 500 MG/255 ML BAG IV STA (03:20)
[2025-03-13] MEDS: Heparin IV Adult Wt-Based Standard w/ INITIAL Bolus Protocol IV STA (03:28)
[2025-03-13 03:57] LABS: INR 1.1 (0.9-1.1); Partial Thromboplastin Time 26 Seconds (21-31); Prothrombin Time 11.1 Seconds (9.0-12.0)
[2025-03-13] MEDS ORDERED: ALBUT/IPRATROP 3MG/0.5MG NEB 3 ML VIAL NEB PRN (04:18)
--- NOTE | 2025-03-13 06:03 | Ultrasound Report ---
EXAM: US venous doppler LE BI CLINICAL HISTORY: PE. TECHNIQUE: Ultrasound examination of the bilateral lower extremity veins was performed in real time and with duplex. One or more of the following were performed: spectral analysis, resistive index, waveform analysis, and pulsed Doppler. COMPARISON: None. FINDINGS: Normal flow is noted in the visualized bilateral greater saphenous, common femoral, superficial femoral, popliteal, anterior tibial, posterior tibial, and peroneal veins. The visualized veins of both lower extremities demonstrate normal compressibility. No sonographic evidence of acute deep vein thrombosis (DVT) is detected in the visualized veins of both lower extremities. Spectral Doppler images of the bilateral common femoral vein, superficial femoral vein, and popliteal veins are available. Non-pulsatile and spontaneous flow is seen. Compression: All evaluated veins compress fully with the applied transducer pressure. Additional Findings: No evidence of intraluminal thrombus. IMPRESSION: No sonographic evidence of acute DVT was detected at the time of examination. Disclaimer: DVT could be missed early in the disease when clot burden is minimal. For patients with moderate and high pretest probability of DVT and negative ultrasound, the [employer] clinical guidelines recommend testing with a D-dimer assay or repeat ultrasound in 5-7 days. If symptoms worsen, the Society of radiologists in ultrasound recommends repeating ultrasound even earlier. Electronically signed by Naresh Vo 03-13-2025 06:03 AM
[2025-03-13] MEDS: PIPERACILLIN/TAZOBACTAM 4.5 GM/100 ML BAG IV SCH (07:26)
[2025-03-13 10:08] LABS: ANTI-Xa, UFH(UnfractionatedHep 0.69 IU/ml (0.3-0.7)
[2025-03-13] MEDS: ACETAMINOPHEN 500 MG TAB PO PRN (10:58)
--- NOTE | 2025-03-13 10:58 | Hospitalist Progress Note ---
Date of Service March 13, 2025 Assessment & Plan (1) Pulmonary embolism and infarction: Plan: CT angiography chest PE protocol showed a right lower lobe pulmonary artery and segmental PE. Stop heparin, start eliquis LE US negative for DVT (2) Right lower lobe pneumonia: Plan: Zosyn 4.5 g IV every 8 hours Azithromycin 500 mg IV every 24 hours (3) COVID-19: Plan: -COVID precuatuions (4) Uses oral contraceptives: Plan: -hold OCP use Plan The patient is a 19-year-old female with past medical history significant for OCP use for hormonal treatment. She presents to the emergency department with complaint of 24 hours of persistent right lower chest pain, and right upper quadrant pain, that are worse with deep inspiration and activity. She denies any recent travel or sick exposures, she denies any trauma. She denies any fevers or chills, myalgias or arthralgias. Workup in the emergency department included a normal set of laboratories except for a mildly elevated WBC 11.09 and a D-dimer of 3920. CT scan of abdomen pelvis showed a right lower lobe pocket and gaseous distention. Chest x-ray suggested right lower lobe infiltrate. CT angiography chest PE protocol showed a right lower lobe pulmonary artery and segmental PE. There was also suggestion of right lower lobe pulmonary infarct. Also noted is a right lower lobe pneumonia. Later on in the admission, [employer] testing returned positive for COVID. Patient denied any symptoms referable to COVID infection. Admission and Anticipated Discharge Date Admission Date: March 13, 2025 Subjective Pt states breathing has improved, still having pleuritic chest pain. Review of Systems Review of Systems: CONST: Negative for fever, body aches and chills. HENT: Negative for neck pain/stiffness, headache, congestion, sore throat, swelling. EYES: Negative for discharge/pain or vision changes. RESP: Negative for cough/hemoptysis and shortness of breath. CV: Negative chest pain, difficulty breathing, palpitations. ABD: Negative pain, nausea, vomiting. : Negative increase frequency, dysuria, blood in urine or stool. MUSC: Negative for muscle aches, edema. SKIN: Negative rash, lesions/sores. NEURO: Negative headache, dizziness, weakness. Physical Exam Physical Exam: GENERAL APPEARANCE NAD, activity normal for age, well developed/ well nourished, no cyanosis, pallor, or diaphoresis. EYES lids/conjunctiva normal. EARS/NOSE/THROAT Mucous membranes moist, nares normal, lips/teeth normal uvula midline without oral pharyngeal erythema, exudate or swelling TMs normal bilaterally. No lymphangitis/lymphedema. HEAD/NECK normocephalic atraumatic, no facial trauma, neck is supple. RESPIRATORY respiratory effort normal, speaks in full sentences, no tripod position, no accessory muscle use. Lungs clear to auscultation without rhonchi, wheezes, rales CARDIAC Regular rate and rhythm, no edema. ABDOMINAL Soft, ND/NT. No evidence of fluid wave. No pulsatile masses on exam, rebound tenderness, Hancock sign or pain over Mcburney's point. MUSCLES/EXTREMITIES No abnormal range of motion, no swelling. SKIN Warm, pink and dry. No rashes, dermatoses, petechiae or lesions. NEUROLOGICAL Speech is clear and appropriate. Normal level of consciousness. Gait and coordination are normal. 5/5 strength in all extremities. PSYCH Normal mood and affect. Judgement/competence is appropriate Results & Data Results & Data Vital Signs (Past 12 Hours) Vital Signs Temp Pulse Pulse Resp BP BP Pulse Ox 03/13/25 10:53 37.9 C H 108 H 22 105/60 98 03/13/25 08:59 94 H 03/13/25 07:35 37.2 C 100 H 18 109/75 97 03/13/25 04:40 105 H 03/13/25 04:18 37.1 C 113 H 20 118/80 100 03/13/25 04:18 03/13/25 04:18 03/13/25 04:18 113 H 20 118/80 100 03/13/25 03:58 101 H 17 117/74 98 03/13/25 02:51 95 H 03/13/25 02:14 89 24 108/67 100 03/13/25 00:52 102 H 30 H 125/72 95 03/12/25 23:32 99 03/12/25 23:30 104 H 28 H 126/75 100 03/12/25 23:00 99 H 18 110/82 100 Pulse Ox O2 Del Method O2 Del Method 03/13/25 10:53 Room Air 03/13/25 08:59 03/13/25 07:35 Room Air 03/13/25 04:40 03/13/25 04:18 Room Air 03/13/25 04:18 Room Air 03/13/25 04:18 100 Room Air 03/13/25 04:18 Room Air 03/13/25 03:58 Room Air 03/13/25 02:51 03/13/25 02:14 Room Air 03/13/25 00:52 Room Air 03/12/25 23:32 Room Air 03/12/25 23:30 Room Air 03/12/25 23:00 Room Air PG Care Time/CCT Total # of Minutes Spent Total Time Spent with Patient: Total time spent is greater than 50% in coordination of care (as documented) at patient's floor/unit and/or counseling patient: Coding Level of Care Code 93949 SUB INP/OBS CARE MIN Diagnoses Pulmonary embolism and infarction I26.99 Right lower lobe pneumonia J18.9 COVID-19 U07.1 Uses oral contraceptives Z30.41
[2025-03-13] MEDS: APIXABAN 5 MG TABLET PO SCH (11:40)
--- NOTE | 2025-03-13 15:40 | Electrocardiogram Report ---
Test Reason : Blood Pressure : */* mmHG Vent. Rate : 101 BPM Atrial Rate : 101 BPM P-R Int : 146 ms QRS Dur : 80 ms QT Int : 336 ms P-R-T Axes : -21 -11 -20 degrees QTcB Int : 435 ms Sinus tachycardia Minimal voltage criteria for LVH, may be normal variant ( R in aVL ) Inferior infarct , age undetermined Abnormal ECG No previous ECGs available Confirmed by Prateek Roe ([id number]) on 03/13/2025 3:39:45 PM Referred By: REFERRED SELF Confirmed By: Prateek Roe
[2025-03-14] MEDS: AZITHROMYCIN 500 MG/255 ML BAG IV SCH (03:53)
[2025-03-14 06:32] LABS: Hematocrit (blood only) 26.1 % (37.0-47.0); Hemoglobin 8.9 g/dl (12.0-16.0); Immature Granulocytes # (auto) 0.03 K/uL (0.01-0.20); Immature Granulocytes % (auto) 0.3 %; Mean Corpuscular Hemoglobin 27.3 pg (25.0-34.0); Mean Corpuscular Volume 80.1 fL (80.0-100.0); Platelet Count 222 K/uL (130-400); RDW Standard Deviation 37.2 fL (36.4-46.3); Red Blood Count 3.26 M/uL (4.20-5.40); White Blood Count 10.62 K/ul (4.8-10.8)
[2025-03-14 07:01] LABS: Albumin Level 3.3 gm/dl (3.4-5.0); Anion Gap 7.0 (3-11); Blood Urea Nitrogen 8.0 mg/dl (6-23); Calcium 8.4 mg/dl (8.6-10.3); Carbon Dioxide 24.0 mmol/L (21-32); Chloride 100.0 mmol/L (98-107); Creatinine Clr Calc Pharmacy 118.1 ml/min; Glucose 111.0 mg/dl (70-99(Fasting)); INR 1.2 (0.9-1.1); Magnesium 1.6 mg/dl (1.7-2.4); Partial Thromboplastin Time 31 Seconds (21-31); Potassium 3.9 mmol/L (3.5-5.1); Prothrombin Time 12.3 Seconds (9.0-12.0); Sodium 131.0 mmol/L (136-145)
[2025-03-14 08:13] VITALS: O2SAT 96
[2025-03-14] MEDS: MAGNESIUM SULFATE / D5W 1 GM/100 ML BAG IV ONE (08:55)
--- NOTE | 2025-03-14 10:06 | Discharge Summary ---
Discharge Summary Date of Service March 14, 2025 Principal Dx & Hospital Course #1 = Principal Diagnosis (1) Pulmonary embolism and infarction: CT angiography chest PE protocol showed a right lower lobe pulmonary artery and segmental PE. Stop heparin, start eliquis LE US negative for DVT (2) Right lower lobe pneumonia: Zosyn 4.5 g IV every 8 hours Azithromycin 500 mg IV every 24 hours (3) COVID-19: -COVID precuatuions (4) Uses oral contraceptives: -hold OCP use Plan The patient is a 19-year-old female with past medical history significant for OCP use for hormonal treatment. She presents to the emergency department with complaint of 24 hours of persistent right lower chest pain, and right upper quadrant pain, that are worse with deep inspiration and activity. She denies any recent travel or sick exposures, she denies any trauma. She denies any fevers or chills, myalgias or arthralgias. Workup in the emergency department included a normal set of laboratories except for a mildly elevated WBC 11.09 and a D-dimer of 3920. CT scan of abdomen pelvis showed a right lower lobe pocket and gaseous distention. Chest x-ray suggested right lower lobe infiltrate. CT angiography chest PE protocol showed a right lower lobe pulmonary artery and segmental PE. There was also suggestion of right lower lobe pulmonary infarct. Also noted is a right lower lobe pneumonia. Later on in the admission, [employer] testing returned positive for COVID. Patient denied any symptoms referable to COVID infection. Admission HPI Per Admitting Provider The patient is a 19-year-old female with past medical history significant for OCP use for hormonal treatment. She presents to the emergency department with complaint of 24 hours of persistent right lower chest pain, and right upper quadrant pain, that are worse with deep inspiration and activity. She denies any recent travel or sick exposures, she denies any trauma. She denies any fevers or chills, myalgias or arthralgias. Workup in the emergency department included a normal set of laboratories except for a mildly elevated WBC 11.09 and a D-dimer of 3920. CT scan of abdomen pelvis showed a right lower lobe pocket and gaseous distention. Chest x-ray suggested right lower lobe infiltrate. CT angiography chest PE protocol showed a right lower lobe pulmonary artery and segmental PE. There was also suggestion of right lower lobe pulmonary infarct. Also noted is a right lower lobe pneumonia. Later on in the admission, [employer] testing returned positive for COVID. Patient denied any symptoms referable to COVID infection. Discharge Exam GENERAL APPEARANCE NAD, activity normal for age, well developed/ well nourished, no cyanosis, pallor, or diaphoresis. EYES lids/conjunctiva normal. EARS/NOSE/THROAT Mucous membranes moist, nares normal, lips/teeth normal uvula midline without oral pharyngeal erythema, exudate or swelling TMs normal bilaterally. No lymphangitis/lymphedema. HEAD/NECK normocephalic atraumatic, no facial trauma, neck is supple. RESPIRATORY respiratory effort normal, speaks in full sentences, no tripod position, no accessory muscle use. Lungs clear to auscultation without rhonchi, wheezes, rales CARDIAC Regular rate and rhythm, no edema. ABDOMINAL Soft, ND/NT. No evidence of fluid wave. No pulsatile masses on exam, rebound tenderness, Hancock sign or pain over Mcburney's point. MUSCLES/EXTREMITIES No abnormal range of motion, no swelling. SKIN Warm, pink and dry. No rashes, dermatoses, petechiae or lesions. NEUROLOGICAL Speech is clear and appropriate. Normal level of consciousness. Gait and coordination are normal. 5/5 strength in all extremities. PSYCH Normal mood and affect. Judgement/competence is appropriate Discharge Plan Discharge Items Patient Disposition: Home - Self-Care Reason For Visit: RLL PE/PI, RLL PNEUMONIA Discharge Diagnosis: PE, PNA Activity: Resume your previous activity Non-emergency contact: Primary Care Provider Call non-emergency contact if: you have any medication questions Follow-up/Referrals: PCP,NO [Primary Care Provider] - Diet: Regular Addtl Attending Provider Instructions: Follow up with PMD in 1 week Pending Studies at Discharge: No Stand-Alone Forms: My [employer], Smoking Cessation Medications and DC Order Prescriptions: New tramadol 50 mg Tablet 50 mg PO Q4H PRN (Reason: pain) Qty: 30 0RF Eliquis 5 mg (74 tabs) tablets,dose pack 5 mg PO BID Qty: 74 0RF Rx Instructions: Take 2 tabs BID for 10 days, then take 1 tab BID amoxicillin-pot clavulanate 875-125 mg tablet 1 tab PO BID Qty: 10 0RF Discontinued drospirenone-ethinyl estradiol [Vestura (28)] 3-0.02 mg Tablet 1 tab PO QPM Discharge Orders: Discharge Order (Routine); Ordered 03/14/25 Ordered By: López Benitez Admission Data Admit Date/Time: 03/13/25 02:51 Attending Provider: López Benitez Admit Provider: Medhat Jorge Primary Care Provider: PCP,NO Other Providers: Medhat Jorge Hospital Stay Data Consultations 03/13/25 02:56 ED Decision to Admit Stat Diagnostic Imagining Performed 03/12/25 23:26 CT abd pelvis IV con only Stat 03/13/25 00:36 CT angio chest PE protocol Stat 03/13/25 02:38 US venous doppler LE BI Stat Pending Results Patient Have Any Pending Studies at Discharge: No Discharge Instructions Given to Patient (Per Discharging Provider) Follow up with PMD in 1 week Total Time Total Time Spent Total Time Spent (In Minutes): 50 Coding Level of Care Code 64853 INP/OBS DISCH >30 MIN Diagnoses Pulmonary embolism and infarction I26.99 Right lower lobe pneumonia J18.9 COVID-19 U07.1 Uses oral contraceptives Z30.41
[2025-03-14 11:42] VITALS: BP 114/74; PULSE 120; RESP 18; TEMP 100.2
== END 2025-03-14 13:15 | disposition home or self-care (01) | DRG 175 ==
LOC: EDBD → ED 22:47 → 2E 03-13 02:51 → SUATTDRO 03-13 02:51 → 2E 03-13 03:57